=== PATIENT | female | born 1995 | race African-American/Black ===

== ENCOUNTER 2020-07-13 22:10 | Emergency (ER) | payer OTHER ==
[~2020-07-13] VITALS: Ht 149.9 cm; Wt 48.0 kg
[2020-07-13] MEDS ORDERED: MAALOX/HYOSCYAMINE/LIDOCAINE 45 ML BTL PO ONE (22:30)
[2020-07-13] MEDS ORDERED: SODIUM CHLORIDE FLUSH 10ML SYR IVF ONE (22:30)
[2020-07-13] MEDS ORDERED: KETOROLAC 30 MG/1 ML IVPush ONE (22:30)
[2020-07-13] MEDS ORDERED: SODIUM CHLORIDE 0.9% 1,000ML IVBOLUS ONE (22:30)
[2020-07-13] MEDS ORDERED: PLEASE ENTER ALLERGIES MC SCH (22:30)
[2020-07-13] MEDS ORDERED: KETOROLAC 30 MG/1 ML ONE (22:32)
[2020-07-13] MEDS ORDERED: MAALOX/HYOSCYAMINE/LIDOCAINE 45 ML BTL ONE (22:33)
[2020-07-13 22:40] LABS: ALBUMIN 3.6 g/dL (3.4-5.0); ANION GAP 7 mmol/L (5-15); CALCIUM 8.4 mg/dL (8.5-10.1); CHLORIDE 109 mmol/L (98-107); CREATININE 0.85 mg/dL (0.55-1.02)
[2020-07-13 22:46] LABS: BASOPHILS % (AUTO) 0 % (0-1); EOSINOPHILS % (AUTO) 2 % (1-7); LYMPHOCYTES % (AUTO) 35 % (22-44); MEAN CORPUSCULAR HEMOGLOBIN 26.6 pg (27.0-34.8); MEAN CORPUSCULAR HGB CONC 32.6 g/dL (32.4-35.8); MEAN PLATELET VOLUME 7.7 fL (7.4-10.4); MONOCYTES % (AUTO) 8 % (2-9); NEUTROPHILS % (AUTO) 55 % (42-75); PLATELET COUNT 203 x10^3/uL (130-400); RED BLOOD COUNT 4.82 x10^6/uL (3.82-5.3); RED CELL DISTRIBUTION WIDTH 13.9 % (9.6-15.2)
[2020-07-13 22:47] LABS: MD NO
--- NOTE | 2020-07-13 22:49 | NUR ---
labs unremarkable, ns per mar, pt refused all other meds sts she is no longr having pain. as
[2020-07-13 23:18] VITALS: BP 103/67
--- NOTE | 2020-07-13 23:19 | NUR ---
report to keren dixon. pt tbdc after ivf infused. bp improved as charted. as
--- NOTE | 2020-07-13 23:51 | NUR ---
F/U AND D/C INSTRUCTIONS GIVEN TO PT AND SHE V/U. PT A&OX4, NO ACUTE DISTRESS. SEE V/S FOR IMPROVED BP. PT AMBULATORY AND D/C'D WITHOUT INCIDENT. PIV D/C'D AND CATH INTACT.
== END 2020-07-13 23:53 ==
LOC: ED 22:40
DX: K52.9 Noninfective gastroenteritis and colitis, unspecified (principal); R10.30 Lower abdominal pain, unspecified; R11.2 Nausea with vomiting, unspecified
CPT/HCPCS: 36415; 80048; 82040; 84703; 85025; 99283; J7030; J1885